=== PATIENT | female | born 1985 | race Caucasian/White ===

== ENCOUNTER 2018-04-23 14:43 | Emergency (ER) | payer OTHER ==
[2018-04-23 14:48] VITALS: BMI 27.8
--- NOTE | 2018-04-23 15:13 | PDOC ---
History of Present Illness - General Chief Complaint: Pain Stated Complaint: CHEST PAIN Time Seen by Provider: 04/23/18 15:02 - History of Present Illness Initial Comments: 04/23/18 15:33 Patient is a 33 female with no PMH who presents with headache and chest pain. Headache started this morning and is pressure like mostly in over her forehead and temples. No associated nausea/vomiting, visual changes, mental status changes. Consistent w/prior daily headaches, however is more painful today. Patient took two Excedrin pills today which normally relieves her headache, however today they did not relieve her headache prompting her visit to the ED. Chest pain started around 10 a.m. and is substernal, non-radiating, constant without any noted triggering or relieving factors. No shortness of breath, no lightheadedness, no palpitations. Notes she has experienced similar chest pain intermittently for the last 5+ years. At the recommendation of her primary care doctor patient was evaluated by a audio visual equipment rental clerk last year for her chest pain and was supposed to return for a stress test, however she never did so. Patient has also been referred to a neurologist for evaluation of her headaches , but has not made an appointment. Daughter called today for an appointment but was told patient could not be seen until May 23. NKDA Surgical: denies Social: denies toxic habits PMD: Dr. Stephen Erickson M.D. Past History - Past Medical History Allergies/Adverse Reactions: Allergies Allergy/AdvReac Type Severity Reaction Status Date / Time No Known Allergies Allergy Verified 04/23/18 14:48 Home Medications: Ambulatory Orders NK [No Known Home Medication] 04/23/18 Asthma: No Cancer: No Cardiac Disorders: No COPD: No Diabetes: No HTN: No Seizures: No Thyroid Disease: No - Reproductive History (#): 2 Para: 1 Therapeutic (s) & number: No Spontaneous : 0 - Suicide/Smoking/Psychosocial Hx Smoking History: Never smoked Have you smoked in the past 12 months: No Hx Alcohol Use: No Drug/Substance Use Hx: No Substance Use Type: None Hx Substance Use Treatment: No Review of Systems - Review of Systems Constitutional: No: Chills, Fever HEENTM: No: Blurred Vision, Double Vision Respiratory: No: Cough, Shortness of Breath Cardiac (ROS): Yes: Chest Pain. No: Lightheadedness, Palpitations, Syncope ABD/GI: No: Constipated, Diarrhea, Nausea, Vomiting *Physical Exam - Vital Signs Last Vital Signs Temp Pulse Resp BP Pulse Ox 98.4 F 75 18 186/91 H 100 04/23/18 14:45 04/23/18 14:45 04/23/18 14:45 04/23/18 14:45 04/23/18 14:45 - Physical Exam General Appearance: Yes: Nourished, Appropriately Dressed HEENT: positive: Normal Voice, Hearing Grossly Normal Neck: positive: Trachea midline, Supple Respiratory/Chest: positive: Lungs Clear, Normal Breath Sounds. negative: Labored Respiration, Rapid RR Cardiovascular: positive: S1, S2. negative: Edema, JVD, Murmur Gastrointestinal/Abdominal: positive: Normal Bowel Sounds, Soft. negative: Distended, Guarding, Rebound, Tenderness Musculoskeletal: negative: CVA Tenderness (R), CVA Tenderness (L) Extremity: positive: Normal Capillary Refill, Normal Inspection Integumentary: positive: Normal Color, Dry, Warm Neurologic: positive: Fully Oriented, Alert Heart Score/ECG Review - ECG Intrepretation Rhythm: Regular Rhythm - [place] [facility] [place] [facility]: Normal - ECG Impressions Normal ECG: Yes Comment:: 04/23/18 16:58 NSR HR 66, no PAULINO/STD/TWI, good R wave progression. C/w previous ECG in EMR ED Treatment Course - LABORATORY CBC & Chemistry Diagram: 04/23/18 15:51 04/23/18 15:51 Medical Decision Making - Medical Decision Making 04/23/18 16:14 33 year old female with headache and chest pain. Headache is frontal, bitemporal c/w patient's daily headaches. Chest pain is similar in quality and severity to patient's chest pain that she has been experiencing for >5 years. Initially hypertensive (SBP 180's a triage, 139/82 in ED) Low clinical suspicion for ACS. Will obtain basic labs, ECG and supportive care including headache cocktail. Reassess. 04/23/18 16:39 Patient reassessed @ bedside Chest pain resolved. Headache improved from 01/21 --> 10/22. Will give Reglan and Decadron. Reassess. VS unremarkable 04/23/18 17:56 Patient continues to c/o headache 04/23/18 18:39 Patient tolerating PO intake, texting on phone. 04/23/18 18:53 Patient states her headache is now 8/10 was 20/10 at presentation. Will discharge home with return precautions, close neurologic follow-up and PMD follow-up. I discussed the physical exam findings, ancillary test results and final diagnoses with the patient. I answered all of the patient's questions. The patient was satisfied with the care received and felt comfortable with the discharge plan and treatment plan. The patient will return to the Emergency Department with any new, persistent or worsening symptoms. *DC/Admit/Observation/Transfer Diagnosis at time of Disposition: Headache - Discharge Dispostion Disposition: HOME Condition at time of disposition: Good Decision to Admit order: No - Referrals Referrals: Stephen Erickson MD [Primary Care Provider] - - Patient Instructions Additional Instructions: You were evaluated today for your headache and chest pain. Your lab work showed no concerning findings At this time you are safe for discharge home. A referral has been provided to a neurologist. Please call and tell them you were evaluated in the Emergency Department and you need to see a neurologist for your headaches. Follow up with your primary care doctor in the next 2-3 days he can evaluate you for your chest pain and provide a referral to the audio visual equipment rental clerk you have seen on prior occasion. Return to the Emergency Department for any new/worsening/concerning symptoms. Usted fue evaluado hoy por hayes dolor de deven y dolor de pecho. [employer] trabajo de laboratorio no mostr hallazgos concernientes En devin momento usted est seguro para el homero del hogar. Se lopez proporcionado delia referencia a un neurlogo. Llame y dgales que fue evaluado en el [facility] y que necesita pablo a un neurlogo para ray abelardo de deven. Annabel un seguimiento con hayes mdico de atencin primaria en los prximos 2 o 3 la para que lo evale por hayes dolor de pecho y le brinde delia referencia al cardilogo que haya visto en ocasiones anteriores. Regrese al [facility] Emer[facility] para cualquier sntoma nuevo / que empeora / relacionado. - Post Discharge Activity
[2018-04-23] MEDS ORDERED: SODIUM CHLORIDE 0.9% 500 ML INFUS.BAG IV ONE (15:34)
[2018-04-23] MEDS ORDERED: KETOROLAC TROMETHAMINE 30 MG/1 ML VIAL IVPUSH ONE (15:34)
--- NOTE | 2018-04-23 15:38 | PDOC ---
Attending Attestation - Resident Resident Name: Kathrine Matute - ED Attending Attestation I have performed the following: I have examined & evaluated the patient, The case was reviewed & discussed with the resident, I agree w/resident's findings & plan, Exceptions are as noted - HPI HPI: 04/23/18 15:36 33 yo F h/o migraines who presents to the ER with a complaint of : NGUYEN - similar to prior, began 9am, frontal and bitemporal, no vomiting, no trauma CP - central squeezing, constant, no sob, lightheadedness, nausea, present for several years intermittently has been seen by cardiology in the past and worked up Pt headache initially 03/05 No associated neck pain or stiffness No fevers or chills - Physicial Exam PE: 04/23/18 15:37 GENERAL: The patient is in no acute distress. HEAD: Normal EYES: PERRLA, EOMI, sclera anicteric, conjunctiva clear. LUNGS: Breath sounds equal, clear to auscultation bilaterally. No wheezes, and no crackles. HEART:Regular rate and rhythm, normal S1 and S2 without murmur, rub or gallop. ABDOMEN: Soft, nontender, normoactive bowel sounds. No guarding, no rebound. No masses palpable. EXTREMITIES: Normal range of motion, no edema. No clubbing or cyanosis. No erythema, or tenderness. NEUROLOGICAL: Cranial nerves II through XII grossly intact. Normal speech. No focal neurological deficits. MUSCULOSKELETAL: Back non-tender to palpation, no CVA tenderness SKIN: Warm, Dry, normal turgor, no rashes or lesions noted. - Medical Decision Making 04/23/18 16:39 EKG: NSR rate of 66 bpm, axis nml, intervals nml, no st elevation or depression Labs wnl Pt given pain medications Pain has improved Will discharge to home Pt should be seen by PMD and Neurology Pt asked to keep a headache diary
[2018-04-23 15:56] LABS: BASO % 0.8 % (0-2.0); HEMOGLOBIN 12.7 GM/dL (10.7-15.3); LYMPH % 30.3 % (8-40); MCH 27.5 pg (25.7-33.7); MCHC 32.5 g/dl (32.0-36.0); MEAN CELL VOLUME 84.4 fl (80-96); MEAN PLT VOLUME 9.1 fl (7.5-11.1); MONO % 7.3 % (3.8-10.2); NEUT % 60.6 % (42.8-82.8); PLATELET COUNT 287 K/MM3 (134-434); RBC 4.62 M/mm3 (3.60-5.2); RDW 13.7 % (11.6-15.6); WHITE BLOOD COUNT 5.7 K/mm3 (4.0-10.0)
[2018-04-23 16:14] LABS: ALBUMIN 4.5 g/dl (3.4-5.0); ALK PHOS 60 U/L (45-117); ANION GAP 5 MMOL/L (8-16); BILIRUBIN,TOTAL 0.4 mg/dL (0.2-1); BLOOD UREA NITROGEN 12 mg/dL (7-18); CALCIUM 9.7 mg/dL (8.5-10.1); CHLORIDE 106 mmol/L (98-107); CO2 27 mmol/L (21-32); CREATININE 0.5 mg/dL (0.55-1.3); GLUCOSE,RANDOM 75 mg/dL (74-106); POTASSIUM 3.6 mmol/L (3.5-5.1); SGOT/AST 17 U/L (15-37); SGPT/ALT 29 U/L (13-61); SODIUM 138 mmol/L (136-145); TOT PROT 7.9 g/dl (6.4-8.2)
[2018-04-23] MEDS ORDERED: DEXAMETHASONE SOD PHOSPHATE 4 MG/1 ML VIAL IVPUSH ONE (16:41)
[2018-04-23] MEDS ORDERED: METOCLOPRAMIDE HCL INJECTION 10 MG/2 ML VIAL IVPUSH ONE (16:41)
[2018-04-23] MEDS ORDERED: METOCLOPRAMIDE HCL INJECTION 10 MG/2 ML VIAL ONE (17:10)
[2018-04-23] MEDS ORDERED: DEXAMETHASONE SOD PHOSPHATE 4 MG/1 ML VIAL ONE (17:10)
[2018-04-23] MEDS ORDERED: ACETAMINOPHEN/CAFFEINE/BUTALBITAL 1 TAB PO ONE (17:56)
[2018-04-23] MEDS ORDERED: ACETAMINOPHEN/CAFFEINE/BUTALBITAL 1 TAB ONE (18:09)
[2018-04-23 18:41] VITALS: BP 129/75; PULSE 82; TEMP 98.3
--- NOTE | 2018-04-24 12:12 | EKG ---
Test Reason : Blood Pressure : / mmHG Vent. Rate : 066 BPM Atrial Rate : 066 BPM P-R Int : 136 ms QRS Dur : 086 ms QT Int : 412 ms P-R-T Axes : -03 051 034 degrees QTc Int : 431 ms NORMAL SINUS RHYTHM NORMAL ECG WHEN COMPARED WITH ECG OF 02-AUG-2014 16:01, NO SIGNIFICANT CHANGE WAS FOUND Confirmed by ADÁN SELLERS MD ([id number]) on 04/24/2018 12:11:38 PM Referred By: Confirmed By:ADÁN SELLERS MD
== END 2018-04-23 19:10 | disposition home or self-care (01) ==
LOC: JER 14:43
PROC: 3E033GC Introduction of Other Therapeutic Substance into Peripheral Vein, Percutaneous Approach (ICD-10-PCS; principal; 2018-04-23)
PROC: 3E0333Z Introduction of Anti-inflammatory into Peripheral Vein, Percutaneous Approach (ICD-10-PCS; 2018-04-23)
PROC: 3E0337Z Introduction of Electrolytic and Water Balance Substance into Peripheral Vein, Percutaneous Approach (ICD-10-PCS; 2018-04-23)
DX: R51 Headache (principal)
CPT/HCPCS: 36415; 80053; 84703; 85025; 93005; 93010; 99283-25

== ENCOUNTER 2021-05-05 16:07 | Emergency (ER) | payer OTHER ==
[2021-05-05 16:24] VITALS: BP 155/85; PULSE 76; TEMP 98.5; BMI 27.3
[2021-05-05] MEDS ORDERED: MECLIZINE HCL 25 MG TABLET (FP) PO ONE (18:04)
[2021-05-05] MEDS ORDERED: METOCLOPRAMIDE HCL 10 MG TABLET (FP) PO ONE ×2 (18:04→18:24)
[2021-05-05] MEDS ORDERED: ACETAMINOPHEN/CAFFEINE/BUTALBITAL 1 TAB PO ONE (18:04)
[2021-05-05] MEDS ORDERED: MECLIZINE HCL 25 MG TABLET (FP) ONE (18:23)
[2021-05-05] MEDS ORDERED: ACETAMINOPHEN/CAFFEINE/BUTALBITAL 1 TAB ONE (18:23)
[2021-05-05] MEDS ORDERED: KETOROLAC TROMETHAMINE 30 MG/1 ML VIAL IM ONE (19:05)
[2021-05-05] MEDS ORDERED: KETOROLAC TROMETHAMINE 30 MG/1 ML VIAL ONE (19:08)
== END 2021-05-05 20:08 | disposition home or self-care (01) ==
LOC: JER 16:07 → JERFT 16:07
PROC: 3E0233Z Introduction of Anti-inflammatory into Muscle, Percutaneous Approach (ICD-10-PCS; principal; 2021-05-05)
DX: G43.809 Other migraine, not intractable, without status migrainosus (principal)
CPT/HCPCS: 70450-TC; 99284-25

== ENCOUNTER 2021-11-20 12:21 | Emergency (ER) | payer OTHER ==
[2021-11-20 12:43] VITALS: BP 166/82; PULSE 86; BMI 28.0
[2021-11-20] MEDS ORDERED: SODIUM CHLORIDE 1,000 ML IV STA (13:11)
[2021-11-20] MEDS ORDERED: ACETAMINOPHEN 1000 MG/100 ML BAG IVPB ONE (13:13)
[2021-11-20] MEDS ORDERED: METOCLOPRAMIDE HCL INJECTION 10 MG/2 ML VIAL IVPUSH ONE (13:13)
[2021-11-20] MEDS ORDERED: METOCLOPRAMIDE HCL INJECTION 10 MG/2 ML VIAL ONE (13:19)
[2021-11-20] MEDS ORDERED: ACETAMINOPHEN INJECTION 100 ML IVPB ONE (13:20)
[2021-11-20 14:03] LABS: BASO % 0.4 % (0-2.0); EOS % 0.7 % (0-4.5); HEMATOCRIT 40.6 % (32.4-45.2); HEMOGLOBIN 13.5 GM/dL (10.7-15.3); LYMPH % 22.7 % (8-40); MCH 27.3 pg (25.7-33.7); MCHC 33.2 g/dl (32.0-36.0); MEAN CELL VOLUME 82.2 fl (80-96); MEAN PLT VOLUME 8.4 fl (7.5-11.1); MONO % 7.4 % (3.8-10.2); NEUT % 68.8 % (42.8-82.8); PLATELET COUNT 350 10^3/uL (134-434); RBC 4.94 M/mm3 (3.60-5.2); RDW 14.1 % (11.6-15.6); WHITE BLOOD COUNT 6.5 K/mm3 (4.0-10.0)
[2021-11-20 14:08] LABS: INR 1.08 (0.83-1.09); PROTHROMBIN TIME (PATIENT) 12.4 SEC (9.7-13.0)
[2021-11-20 14:11] LABS: ACTIVATED PTT 33.5 SECONDS (25.2-36.5)
[2021-11-20 14:19] LABS: PH,URINE 7.5 (5.0-8.0); URINE APPEARANCE CLEAR; URINE BILIRUBIN NEGATIVE (NEGATIVE); URINE COLOR YELLOW; URINE GLUCOSE (UA) NEGATIVE (NEGATIVE); URINE KETONE NEGATIVE (NEGATIVE); URINE LEUK ESTERASE NEGATIVE (NEGATIVE); URINE NITRITE NEGATIVE (NEGATIVE); URINE PROTEIN NEGATIVE (NEGATIVE); URINE UROBILINOGEN 0.2 mg/dL (0.2-1.0)
[2021-11-20 14:22] LABS: HCG,QUALITATIVE URINE Negative
[2021-11-20 14:24] LABS: CALCIUM 9.6 mg/dL (8.5-10.1)
[2021-11-20 14:25] LABS: ALBUMIN 4.5 g/dl (3.4-5.0); BLOOD UREA NITROGEN 12.9 mg/dL (7-18); MAGNESIUM 2.5 mg/dL (1.8-2.4)
[2021-11-20 14:28] LABS: CREATININE 0.8 mg/dL (0.55-1.3)
[2021-11-20 14:30] LABS: BILIRUBIN,TOTAL 0.3 mg/dL (0.2-1); TOT PROT 8.3 g/dl (6.4-8.2)
[2021-11-20] MEDS ORDERED: KETOROLAC TROMETHAMINE 30 MG/1 ML VIAL IVPUSH ONE (15:01)
[2021-11-20] MEDS ORDERED: KETOROLAC TROMETHAMINE 30 MG/1 ML VIAL ONE (15:26)
== END 2021-11-20 17:47 | disposition home or self-care (01) ==
LOC: JER 12:21
PROC: 3E0333Z Introduction of Anti-inflammatory into Peripheral Vein, Percutaneous Approach (ICD-10-PCS; principal; 2021-11-20)
PROC: 3E033GC Introduction of Other Therapeutic Substance into Peripheral Vein, Percutaneous Approach (ICD-10-PCS; 2021-11-20)
PROC: 3E0333Z Introduction of Anti-inflammatory into Peripheral Vein, Percutaneous Approach (ICD-10-PCS; 2021-11-20)
PROC: 3E033GC Introduction of Other Therapeutic Substance into Peripheral Vein, Percutaneous Approach (ICD-10-PCS; 2021-11-20)
PROC: 3E0337Z Introduction of Electrolytic and Water Balance Substance into Peripheral Vein, Percutaneous Approach (ICD-10-PCS; 2021-11-20)
DX: R51.9 Headache, unspecified (principal)
CPT/HCPCS: 36415; 71046-TC-FY; 80053; 81003; 83735; 84484; 84703; 85025; 85610; 85730; 93005; 93010; 99285-25

== ENCOUNTER 2024-02-08 03:05 | Emergency (ER) | payer OTHER ==
[2024-02-08 03:29] VITALS: BMI 27.6
[2024-02-08] MEDS ORDERED: ACETAMINOPHEN INJECTION 100 ML IVPB ONE (04:16)
[2024-02-08] MEDS ORDERED: METOCLOPRAMIDE HCL INJECTION 10 MG/2 ML VIAL ONE (04:16)
[2024-02-08] MEDS: ACETAMINOPHEN 1000 MG/100 ML BAG IVPB ONE (04:25)
[2024-02-08] MEDS ORDERED: MAG HYDROX/AL HYDROX/SIMETH 30 ML UNIT-DOSE CUP ONE (04:29)
[2024-02-08] MEDS ORDERED: FAMOTIDINE 20 MG/50 ML IVPB 20 MG/50 ML MG IVPB ONE (04:30)
[2024-02-08] MEDS: MAG HYDROX/AL HYDROX/SIMETH -MYLANTA- ORAL SUSPENSION PO ONE (04:41)
[2024-02-08] MEDS: METOCLOPRAMIDE HCL INJECTION 10 MG/2 ML VIAL IVPB ONE (04:42)
[2024-02-08 04:46] LABS: BASO % 0.6 % (0-2.0); HEMATOCRIT 41.4 % (32.4-45.2); HEMOGLOBIN 13.6 GM/dL (10.7-15.3); LYMPH % 24.6 % (8-40); MCH 25.7 pg (25.7-33.7); MCHC 32.9 g/dl (32.0-36.0); MEAN CELL VOLUME 78.3 fl (80-96); MONO % 7.6 % (3.8-10.2); NEUT % 66.2 % (42.8-82.8); PLATELET COUNT 367 10^3/uL (134-434); RBC 5.29 M/mm3 (3.60-5.2); RDW 15.4 % (11.6-15.6); WHITE BLOOD COUNT 6.2 K/mm3 (4.0-10.0)
[2024-02-08] MEDS: FAMOTIDINE 20 MG/50 ML IVPB 20 MG in PREMIX 50 IVPB ONE (04:52)
[2024-02-08] MEDS: SODIUM CHLORIDE 0.9% 500 ML INFUS.BAG IV ONE (04:52)
[2024-02-08 04:57] LABS: EPI CELLS 2 /uL (0-25.1); HYALINE CASTS 0 /uL (0-3.1); URINE APPEARANCE CLEAR; URINE BACTERIA 7 /uL (0-1359); URINE BILIRUBIN NEGATIVE (NEGATIVE); URINE COLOR YELLOW; URINE GLUCOSE (UA) NEGATIVE (NEGATIVE); URINE KETONE NEGATIVE (NEGATIVE); URINE LEUK ESTERASE NEGATIVE (NEGATIVE); URINE NITRITE NEGATIVE (NEGATIVE); URINE PROTEIN NEGATIVE (NEGATIVE); URINE RBC 1380 /uL (0-23.9); URINE UROBILINOGEN 0.2 mg/dL (0.2-1.0); URINE WBC 7 /uL (0-25.8)
[2024-02-08 04:59] LABS: POTASSIUM 3.5 mmol/L (3.5-5.1)
[2024-02-08 05:02] LABS: ALBUMIN 4.9 g/dl (3.4-5.0); BLOOD UREA NITROGEN 13.3 mg/dL (7-18); CALCIUM 9.8 mg/dL (8.5-10.1)
[2024-02-08 05:05] LABS: CREATININE 0.7 mg/dL (0.55-1.3)
[2024-02-08 05:07] LABS: BILIRUBIN,TOTAL 0.4 mg/dL (0.2-1)
[2024-02-08] MEDS ORDERED: KETOROLAC TROMETHAMINE 15 MG/ML VIAL ONE (05:30)
[2024-02-08] MEDS: KETOROLAC TROMETHAMINE 15 MG/ML VIAL IVPUSH ONE (05:37)
[2024-02-08 05:39] VITALS: RESP 19
[2024-02-08] MEDS ORDERED: MAGNESIUM SULFATE IN WATER 2 GM/50 ML IVPB IVPB ONE (09:03)
[2024-02-08] MEDS: MAGNESIUM SULFATE IN WATER 2 GM/50 ML IVPB IVPB ONE (09:15)
[2024-02-08 09:42] VITALS: BP 120/73; PULSE 70; TEMP 98.1
[2024-02-08] MEDS ORDERED: MECLIZINE HCL 25 MG TABLET (FP) ONE (11:07)
[2024-02-08] MEDS: MECLIZINE HCL 25 MG TABLET (FP) PO ONE (11:10)
== END 2024-02-08 12:14 | disposition home or self-care (01) ==
LOC: JER 03:05
PROC: 3E033GC Introduction of Other Therapeutic Substance into Peripheral Vein, Percutaneous Approach (ICD-10-PCS; principal; 2024-02-08)
PROC: 3E033GC Introduction of Other Therapeutic Substance into Peripheral Vein, Percutaneous Approach (ICD-10-PCS; 2024-02-08)
PROC: 3E033NZ Introduction of Analgesics, Hypnotics, Sedatives into Peripheral Vein, Percutaneous Approach (ICD-10-PCS; 2024-02-08)
PROC: 3E0333Z Introduction of Anti-inflammatory into Peripheral Vein, Percutaneous Approach (ICD-10-PCS; 2024-02-08)
PROC: 3E033GC Introduction of Other Therapeutic Substance into Peripheral Vein, Percutaneous Approach (ICD-10-PCS; 2024-02-08)
DX: R51.9 Headache, unspecified (principal); R07.89 Other chest pain; R10.13 Epigastric pain; R11.0 Nausea; Z20.822 Contact with and (suspected) exposure to COVID-19
CPT/HCPCS: 0241U-QW; 36415; 70450-TC; 80053; 81003; 83690; 84484; 84703; 85025; 93005; 93010; 99285-25; J0131